=== PATIENT | male | born 1975 ===

== ENCOUNTER 2020-01-13 03:48 | Outpatient (CLI) | payer MEDICAID, SELFPAY ==
[2020-01-14 11:01] LABS: SARS-CoV-2 RNA Not Detected (NotDetected); SARS-CoV-2 RNA Source Nasal/Nares
== END 2020-01-13 04:08 ==
PROVIDERS: Visit Provider Nurse Practitioner
DX: Z11.59 Encounter for screening for other viral diseases (principal)
CPT/HCPCS: U0003